=== PATIENT | male | born 1990 | race Two or more races ===

== ENCOUNTER 2023-12-25 13:02 | Emergency (ER) | payer OTHER ==
[2023-12-25] MEDS: traMADol 50 MG Tab PO ONE (14:38)
[2023-12-25] MEDS: Cyclobenzaprine 10 MG Tab PO ONE (14:38)
== END 2023-12-25 15:35 | disposition home or self-care (01) ==
LOC: MW.ED 13:02
DX: S40.011A Contusion of right shoulder, initial encounter (principal); R07.89 Other chest pain; M54.50 Low back pain, unspecified; Z79.899 Other long term (current) drug therapy; Z75.8 Other problems related to medical facilities and other health care; V43.53XA Car driver injured in collision with pick-up truck in traffic accident, initial encounter; Y92.410 Unspecified street and highway as the place of occurrence of the external cause
CPT/HCPCS: 70450; 71045; 72125; 72128; 72131; 73030; 99285; A9270; 99283

== ENCOUNTER 2024-11-05 12:42 | Emergency (ER) | payer SELFPAY | END 2024-11-05 13:46 | disposition home or self-care (01) | LOC: MW.ED 12:42 | DX: S43.401A Unspecified sprain of right shoulder joint, initial encounter (principal); M94.0 Chondrocostal junction syndrome [Tietze]; Z79.899 Other long term (current) drug therapy; X58.XXXA Exposure to other specified factors, initial encounter; Y93.89 Activity, other specified | CPT/HCPCS: 99282; 99283 ==